=== PATIENT | male | born 1985 | race Caucasian/White ===

== ENCOUNTER 2017-05-10 11:51 | Emergency (ER) | payer OTHER ==
[~2017-05-10] VITALS: Ht 172.7 cm; Wt 65.8 kg
[2017-05-10 11:54] VITALS: BP 111/75
[2017-05-10] MEDS ORDERED: IBUPROFEN 600600 M1 PO (13:55)
[2017-05-10] MEDS ORDERED: KEFLEX500 MG PO (13:55)
== END 2017-05-10 14:11 | disposition home or self-care (01) ==
LOC: ER 11:51
DX: S51.812A Laceration without foreign body of left forearm, initial encounter (principal); W45.8XXA Other foreign body or object entering through skin, initial encounter; Y93.89 Activity, other specified; Y92.098 Other place in other non-institutional residence as the place of occurrence of the external cause; Y99.8 Other external cause status